=== PATIENT | male | born 1985 | race Caucasian/White ===

== ENCOUNTER 2016-11-14 23:19 | Emergency (ER) | payer OTHER ==
--- NOTE | 2016-11-14 23:55 | PDOC ---
History of Present Illness - General History Source: Patient Exam Limitations: No Limitations - History of Present Illness Initial Comments: 11/15/16 00:11 The patient is a 31 year old male, with a significant past medical history of anemia, who presents to the emergency department complaining of hiccups and chest pain since approximately 16:00 today. The patient reports experiencing intermittent hiccups earlier this afternoon. He reports some chest pain, which he associates to a cold. Patient reports his chest pain is pleuritic in nature. He denies any associated shortness of breath, diaphoresis, or palpitations. Patient endorses a cough productive of yellow sputum for the past three days, but denies any fever, chills, headache, or dizziness. He denies any nausea, vomiting, diarrhea, or constipation. Patient reports recent contact with partner who also has a cold. Patient denies any recent travel. Allergies: NKDA Past Surgical History: None reported Social History: Social hookah use. No ETOH or other drug use. <Torin Reeves - Last Filed: 11/15/16 00:11> <Masood Lyons - Last Filed: 11/15/16 02:14> - General Stated Complaint: HICCUPS Time Seen by Provider: 11/14/16 23:51 Past History <Torin Reeves - Last Filed: 11/15/16 00:11> - Past Medical History Anemia: Yes (thalessemia) - Immunization History Immunization Up to Date: Yes - Suicide/Smoking/Psychosocial Hx Smoking History: Never smoked Have you smoked in the past 12 months: No Number of Cigarettes Smoked Daily: 0 Hx Alcohol Use: No Drug/Substance Use Hx: No Substance Use Type: None <Masood Lyons - Last Filed: 11/15/16 02:14> - Past Medical History Allergies/Adverse Reactions: Allergies Allergy/AdvReac Type Severity Reaction Status Date / Time No Known Allergies Allergy Verified 11/15/16 00:15 Home Medications: Ambulatory Orders Meclizine HCl [Antivert -] 25 mg PO DAILY #7 tablet 12/09/15 Azithromycin [Zithromax -] 250 mg PO UTDICT #6 tab 11/15/16 Review of Systems - Review of Systems Able to Perform ROS?: Yes Comments:: 11/15/16 00:12 CONSTITUTIONAL: Yes hiccups. No fever, no chills, no fatigue EYES: No visual changes ENT: No ear pain, no sore throat CARDIOVASCULAR: Yes chest pain. No palpitations RESPIRATORY: Yes cough productive of yellow sputum. No SOB GI: No abdominal pain, no nausea, no vomiting, no constipation, no diarrhea GENITOURINARY: No dysuria, no frequency, no hematuria MUSCULOSKELETAL: No back pain, no joint pain, no myalgias SKIN: No rash NEURO: No headache <Torin Reeves - Last Filed: 11/15/16 00:11> *Physical Exam - Physical Exam Comments: 11/15/16 00:29 EXAMINATION CONSTITUTIONAL: Well-appearing; well-nourished; in no apparent distress HEAD: Normocephalic; atraumatic EYES: PERRL; EOM intact ENMT: External appears normal; normal oropharynx NECK: Supple; non-tender; no cervical lymphadenopathy CARD: Normal S1, S2; no murmurs, rubs, or gallops RESP: Normal chest excursion with respiration; breath sounds clear and equal bilaterally; no wheezes, rhonchi, or rales ABD: Soft, non-distended; non-tender; no palpable organomegaly, no palpable hernias EXT: Normal ROM in all four extremities; non-tender to palpation; distal pulses intact SKIN: Warm, dry, no rash NEURO: No focal neurological deficiencies. <Masood Lyons - Last Filed: 11/15/16 02:14> Medical Decision Making - Medical Decision Making 11/15/16 00:29 Well-appearing 31 patient presents with mild productive cough and intermittent. Patient is afebrile and hemodynamically stable. We'll obtain chest x-ray to rule out pneumonia. Likely discharge. 11/15/16 02:11 Patient with right middle lobe infiltrate. Will discharge with Z-Leopoldo with outpatient follow-up. <Masood Lyons - Last Filed: 11/15/16 02:14> *DC/Admit/Observation/Transfer - Attestations Scribe Attestion: 11/15/16 00:11 Documentation prepared by Torin Reeves, acting as medical record clerk for Masood Lyons MD. <Torin Reeves - Last Filed: 11/15/16 00:11> - Attestations Physician Attestion: 11/15/16 00:29 The documentation was prepared by the scribe under my direct supervision. I have reviewed the documentation which correctly represents the findings, medical decision-making and critical action taken by me. <Masood Lyons - Last Filed: 11/15/16 02:14> Diagnosis at time of Disposition: Hiccups Pneumonia Qualifiers: Pneumonia type: due to unspecified organism Laterality: right Lung location: middle lobe of lung Qualified Code(s): J18.1 - Lobar pneumonia, unspecified organism; J18.1 - Lobar pneumonia, unspecified organism; J18.1 - Lobar pneumonia , unspecified organism - Discharge Dispostion Disposition: HOME Condition at time of disposition: Stable - Referrals Referrals: [facility] [Provider Group] - Patient Instructions Printed Discharge Instructions: DI for Pneumonia -- Adult
[2016-11-15 00:17] VITALS: BP 124/65; PULSE 65; TEMP 97.5; BMI 24.3
== END 2016-11-15 02:24 | disposition home or self-care (01) ==
LOC: JER 23:19
DX: J18.1 Lobar pneumonia, unspecified organism (principal); R06.6 Hiccough
CPT/HCPCS: 71020-TC; 99281-25

== ENCOUNTER 2017-11-21 21:19 | Emergency (ER) | payer SELFPAY ==
[2017-11-21 21:28] VITALS: BP 134/79; BMI 32.4
[2017-11-21] MEDS ORDERED: ACETAMINOPHEN 500 MG TABLET (FP) PO ONE (21:28)
[2017-11-21] MEDS ORDERED: ACETAMINOPHEN 500 MG TABLET (FP) ONE (21:29)
--- NOTE | 2017-11-21 23:09 | PDOC ---
History of Present Illness - General History Source: Patient, Family Exam Limitations: No Limitations - History of Present Illness Initial Comments: 11/21/17 23:14 The patient is a 32 year old male, with no significant past medical history, who presents to the ED complaining of sore throat, subjective fever, dizziness, cough, nausea and vomiting for 2 days. He notes that his cough is productive of a yellow sputum. He denies any recent travel or sick contacts. He notes that he has been taking Advil and a few doses of Penicillin that he had in the house. The patient denies chest pain, shortness of breath, headache, chills, diarrhea or constipation. Allergies: None Past surgical history: None reported Social History: No alcohol, tobacco or drug use reported <Brodie Daniels - Last Filed: 11/21/17 23:51> <Minnie Mckeon - Last Filed: 11/22/17 04:49> - General Chief Complaint: Cold Symptoms Stated Complaint: FEVER/SORE THROAT Time Seen by Provider: 11/21/17 21:38 Past History <Brodie Daniels - Last Filed: 11/21/17 23:51> - Past Medical History Anemia: Yes (thalessemia) COPD: No - Immunization History Immunization Up to Date: Yes - Suicide/Smoking/Psychosocial Hx Smoking History: Never smoked Have you smoked in the past 12 months: No Number of Cigarettes Smoked Daily: 0 Hx Alcohol Use: No Drug/Substance Use Hx: No Substance Use Type: None <Minnie Mckeon - Last Filed: 11/22/17 04:49> - Past Medical History Allergies/Adverse Reactions: Allergies Allergy/AdvReac Type Severity Reaction Status Date / Time No Known Allergies Allergy Verified 11/15/16 00:15 Home Medications: Ambulatory Orders Ibuprofen [Ibu-200] 400 mg PO ONCE 11/21/17 Review of Systems - Review of Systems Able to Perform ROS?: Yes Comments:: 11/21/17 23:14 GENERAL/CONSTITUTIONAL: (+) Fever. No chills. No weakness. HEAD, EYES, EARS, NOSE AND THROAT: (+) Sore throat. No change in vision. No ear pain or discharge. GASTROINTESTINAL: (+) nausea, vomiting. No diarrhea or constipation. GENITOURINARY: No dysuria, frequency, or change in urination. CARDIOVASCULAR: No chest pain or shortness of breath. RESPIRATORY: (+) Cough. No wheezing, or hemoptysis. MUSCULOSKELETAL: No joint or muscle swelling or pain. No neck or back pain. SKIN: No rash NEUROLOGIC: (+) Dizziness. No headache, loss of consciousness, or change in strength/sensation. ENDOCRINE: No increased thirst. No abnormal weight change. HEMATOLOGIC/LYMPHATIC: No anemia, easy bleeding, or history of blood clots. ALLERGIC/IMMUNOLOGIC: No hives or skin allergy. <Brodie Daniels - Last Filed: 11/21/17 23:51> *Physical Exam - Vital Signs Last Vital Signs Temp Pulse Resp BP Pulse Ox 101.7 F H 128 H 16 134/79 97 11/21/17 21:25 11/21/17 21:25 11/21/17 21:25 11/21/17 21:25 11/21/17 21:25 - Physical Exam Comments: 11/21/17 23:14 Constitutional: Awake, alert, oriented. No acute distress. Head: Normocephalic. Atraumatic Eyes: PERRL. EOMI. Conjunctivae are not pale. ENT: (+) Erythema, mild edema and exudate around the left tonsil, with tenderness on left anterior cervical lymphnodes. Mucous membranes are moist and intact. Uvula midline. Neck: Supple. Full ROM. No lymphadenopathy. Cardiovascular: Regular rate. Regular rhythm. S1, S2 regular. Distal pulses are 2+ and symmetric. Pulmonary/Chest: No evidence of respiratory distress. Clear to auscultation bilaterally No wheezing, rales or rhonchi. Abdominal: Soft and non-distended. There is no tenderness. No rebound, guarding or rigidity. No organomegaly. No palpable masses. Good bowel sounds. Back: No CVA tenderness. Musculoskeletal: No edema. No cyanosis. No clubbing. Full range of motion in all extremities. Nocalf tenderness. Radial/pedal pulses are intact and 2+ bilaterally Skin: Skin is warm and dry. No petechiae. No purpura. Neurological: Alert and oriented to person, place, and time. Cranial nerves II -XII are grossly intact. Normal speech. Strength is grossly symmetric. No sensory deficits. Psychiatric: Good eye contact. Normal interaction, affect and behavior. <Brodie Daniels - Last Filed: 11/21/17 23:51> - Vital Signs Last Vital Signs Temp Pulse Resp BP Pulse Ox 101.7 F H 128 H 16 134/79 97 11/21/17 21:25 11/21/17 21:25 11/21/17 21:25 11/21/17 21:25 11/21/17 21:25 <Minnie Mckeon - Last Filed: 11/22/17 04:49> ED Treatment Course - ADDITIONAL ORDERS Additional order review: 11/21/17 21:28 Group A Strep Rapid Antigen - Final Throat NEGATIVE FOR THE ANTIGEN OF BETA HEMOLYTIC STREP GROUP A - Medications Given in the ED: ED Medications Discontinued Medications Generic Name Dose Route Start Last Admin Trade Name Freq PRN Reason Stop Dose Admin Acetaminophen 1,000 mg 11/21/17 21:28 11/21/17 21:28 Tylenol - PO 11/21/17 21:29 1,000 mg NOW ONE Administration <Brodie Daniels - Last Filed: 11/21/17 23:51> - ADDITIONAL ORDERS Additional order review: 11/21/17 21:28 Group A Strep Rapid Antigen - Final Throat NEGATIVE FOR THE ANTIGEN OF BETA HEMOLYTIC STREP GROUP A - Medications Given in the ED: ED Medications Discontinued Medications Generic Name Dose Route Start Last Admin Trade Name Freq PRN Reason Stop Dose Admin Acetaminophen 1,000 mg 11/21/17 21:28 11/21/17 21:28 Tylenol - PO 11/21/17 21:29 1,000 mg NOW ONE Administration <Minnie Mckeon - Last Filed: 11/22/17 04:49> Medical Decision Making - Medical Decision Making Documentation has been prepared under my direction and personally reviewed by me in its entirety. I attest that this documented accurately reflects all work, treatment, procedures and medical decision making performed by me. As noted above, this 32-year-old man presents with a few day history of fever body aches/nausea/vomiting/diarrhea with nonproductive cough and sore throat Exam notable for presentation fever of 101.1 degrees Fahrenheit and erythematous , exudative tonsillitis on the left side. Quick strep was negative and throat culture sent. Patient given 1 g acetaminophen by mouth Although the patient has exudates around the tonsil on the left side, other parts of his presentation are consistent with viral etiology of his illness ( body aches, gastrointestinal symptoms, nonproductive cough. Patient defervesced to 99.2F after acetaminophen. Therefore, patient will be discharged with instructions to continue hydration and rest. Antibiotic prescription will be called in to his pharmacy if throat culture is positive. <Minnie Mckeon - Last Filed: 11/22/17 04:49> *DC/Admit/Observation/Transfer - Attestations Scribe Attestion: 11/21/17 23:14 Documentation prepared by Brodie Daniels, acting as medical payment poster for Minnie Mckeon MD <Brodie Daniels - Last Filed: 11/21/17 23:51> <Minnie Mckeon - Last Filed: 11/22/17 04:49> Diagnosis at time of Disposition: Pharyngitis Qualifiers: Pharyngitis/tonsillitis etiology: unspecified etiology Qualified Code(s): J02.9 - Acute pharyngitis, unspecified - Discharge Dispostion Disposition: HOME Condition at time of disposition: Stable - Patient Instructions Printed Discharge Instructions: DI for Pharyngitis/Tonsillopharyngitis -- Adult Additional Instructions: Rest; drink plenty of fluids Motrin/Tylenol/Aleve as needed for pain and fever We will call you if throat culture is positive and you need antibiotics Return to ER if you have severe pain or high fever Follow-up with your doctor within the next 5 Print Language: FAROESE
[2017-11-21 23:42] VITALS: PULSE 88; TEMP 99.2
== END 2017-11-21 23:55 | disposition home or self-care (01) ==
LOC: FER 21:19
DX: J02.9 Acute pharyngitis, unspecified (principal)
CPT/HCPCS: 87070; 87077; 87430; 99282-25

== ENCOUNTER 2019-02-28 11:58 | Emergency (ER) | payer OTHER ==
[2019-02-28 12:06] VITALS: BP 134/79; PULSE 91; TEMP 97.9; BMI 33.3
[2019-02-28] MEDS ORDERED: KETOROLAC TROMETHAMINE 60 MG/2 ML VIAL IM ONE (12:29)
[2019-02-28] MEDS ORDERED: CYCLOBENZAPRINE HCL 10 MG TABLET (FP) PO ONE (12:29)
[2019-02-28] MEDS ORDERED: MAG HYDROX/AL HYDROX/SIMETH -MYLANTA- ORAL SUSPENSION PO ONE (12:29)
--- NOTE | 2019-02-28 12:29 | PDOC ---
History of Present Illness - General Chief Complaint: Back Pain Stated Complaint: BACK PAIN Time Seen by Provider: 02/28/19 12:01 - History of Present Illness Initial Comments: 02/28/19 12:33 Complaint: Low back pain HPI: Awoke yesterday morning with low back pain, across bilateral sacral area, without radiation to the abdomen or legs. Denies injury, heavy work or lifting , but sits in a car all day. Similar mild back pain in the past, but not as severe. Review of systems: Admits epigastric burning and reflux symptoms for several months, aggravated on an empty stomach, improved with eating. Occasionally brings up small amount of ascitic fluid, yellowish in color, most often when he is brushing his teeth in the morning. Denies chest pain, shortness of breath, berto vomiting or diarrhea, hematemesis melena or bloody stool, numbness, tingling, pain, or weakness in the lower extremities, visual or focal neurologic symptoms, unsteadiness of gait Past medical history: Occasional low back pain and reflux symptoms as described above. Otherwise negative. Takes no medication Family history: No history of coronary artery disease or other cardiac disease in his parents or siblings. No history of GI disease, metabolic disease including diabetes, or cancer Social history: Patient smokes hookah. Denies cigarettes. Occasional social alcohol. No nonprescription drugs. Has gained considerable weight recently Physical exam: Alert and oriented, moderately obese male in no acute distress, cooperative Afebrile, vital signs normal PERRLA, fundi benign, ENT clear No pallor or icterus. Neck supple without bruit mass or nodes Lungs clear with full breath sounds bilaterally. CV S1-S2 normal without murmur rub or gallop pulses full and symmetric no JVD or edema no bruits regular rate Abdomen: Considerably obese, but nondistended, normal bowel sounds. Soft without mass tenderness organomegaly. Specifically, no significant epigastric tenderness to palpation. Sharp sign is negative. No CVAT Extremities no CCE Skin clear, no rash, adequate turgor and wet mucous membranes LS spine: There is loss of the normal lumbar lordosis. There is mild to moderate paravertebral muscle spasm. Straight leg raising is negative. No distal sensory or motor deficits. Gait is stable and unimpaired. Neurological C2 to 12 intact. Strength full and symmetric. No focal sensorimotor deficits. Impression: Low back strain, probably aggravated by prolonged sitting in a car. No other injuries. No radicular signs or symptoms suggestive of herniated disc. Dyspepsia, GERD, possible early gastritis. Patient may smoke and drink more than he admits Plan: Symptomatic treatment of low back pain with medication and avoidance of the sitting position until pain resolves. Pepcid and GI referral for further evaluation of stomach symptoms. Past History - Past Medical History Allergies/Adverse Reactions: Allergies Allergy/AdvReac Type Severity Reaction Status Date / Time No Known Allergies Allergy Verified 02/28/19 12:02 Home Medications: Ambulatory Orders Cyclobenzaprine HCl [Flexeril -] 10 mg PO TID #10 tablet 02/28/19 Diclofenac Sodium 50 mg PO BID #10 tablet. 02/28/19 Famotidine [Pepcid] 40 mg PO DAILY #14 tablet 02/28/19 Anemia: Yes (thalessemia as a child) COPD: No - Immunization History Immunization Up to Date: Yes - Psycho Social/Smoking Cessation Hx Smoking History: Never smoked Have you smoked in the past 12 months: No Number of Cigarettes Smoked Daily: 0 Information on smoking cessation initiated: No 'Breaking Loose' booklet given: 11/21/17 Hx Alcohol Use: ("social") Drug/Substance Use Hx: No Substance Use Type: None Trauma Specific PMHX - Complaint Specific PMHX Back Injury: Yes Neck Injury: No *Physical Exam - Vital Signs Last Vital Signs Temp Pulse Resp BP Pulse Ox 97.9 F 91 H 18 134/79 98 02/28/19 11:58 02/28/19 11:58 02/28/19 11:58 02/28/19 11:58 02/28/19 11:58 Medical Decision Making - Medical Decision Making 02/28/19 13:24 Patient's back pain is much improved. He is much more mobile, with good range of motion of the LS-spine. He is experiencing no abdominal discomfort. Discharged with referrals to follow-up as directed Discharge - Discharge Information Problems reviewed: Yes Clinical Impression/Diagnosis: GERD (gastroesophageal reflux disease) Low back strain Qualifiers: Encounter type: initial encounter Qualified Code(s): S39.012A - Strain of muscle, fascia and tendon of lower back, initial encounter Condition: Improved Disposition: HOME - Admission No - Additional Discharge Information Prescriptions: Cyclobenzaprine HCl [Flexeril -] 10 mg PO TID #10 tablet Diclofenac Sodium 50 mg PO BID #10 tablet. Famotidine [Pepcid] 40 mg PO DAILY #14 tablet - Follow up/Referral Referrals: Bc Don MD [Staff Physician] - 1 week Tim Murillo MD [Staff Physician] - 1 week - Patient Discharge Instructions Patient Printed Discharge Instructions: DI for Low Back Pain, DI for Gastroesophageal Reflux Disease (GERD) Print Language: ITALIAN - Post Discharge Activity Work/Back to School Note: Back to Work
[2019-02-28] MEDS ORDERED: KETOROLAC TROMETHAMINE 60 MG/2 ML VIAL ONE (12:31)
[2019-02-28] MEDS ORDERED: CYCLOBENZAPRINE HCL 10 MG TABLET (FP) ONE (12:32)
[2019-02-28] MEDS ORDERED: MAG HYDROX/AL HYDROX/SIMETH 30 ML UNIT-DOSE CUP ONE (12:32)
== END 2019-02-28 13:25 | disposition home or self-care (01) ==
LOC: FER 11:58
PROC: 3E0233Z Introduction of Anti-inflammatory into Muscle, Percutaneous Approach (ICD-10-PCS; principal; 2019-02-28)
DX: S39.012A Strain of muscle, fascia and tendon of lower back, initial encounter (principal); K21.9 Gastro-esophageal reflux disease without esophagitis; X58.XXXA Exposure to other specified factors, initial encounter; Y93.89 Activity, other specified; Y92.89 Other specified places as the place of occurrence of the external cause
CPT/HCPCS: 99283-25

== ENCOUNTER 2019-12-25 19:20 | Emergency (ER) | payer OTHER ==
[2019-12-25 19:57] VITALS: BP 144/87; PULSE 66; TEMP 98; BMI 34.0
== END 2019-12-25 21:48 | disposition home or self-care (01) ==
LOC: JER 19:20
DX: U07.1 COVID-19 (principal)
CPT/HCPCS: 99283-25; C9803; U0003

== ENCOUNTER 2021-07-07 00:08 | Emergency (ER) | payer OTHER ==
[2021-07-07 00:15] VITALS: BP 137/92; TEMP 98.8; BMI 35.7
[2021-07-07] MEDS ORDERED: ALBUTEROL SO4 2.5/IPRATROPIUM 0.5 INH SOL 3 ML VIAL.NEB. NEB ONE ×2 (00:33→00:38)
[2021-07-07] MEDS ORDERED: ACETAMINOPHEN 1000 MG/100 ML BAG IVPB ONE (00:35)
[2021-07-07] MEDS ORDERED: SODIUM CHLORIDE 1,000 ML IV STA (00:35)
[2021-07-07] MEDS ORDERED: ACETAMINOPHEN INJECTION 100 ML IVPB ONE (00:37)
[2021-07-07 01:37] LABS: BASO % 0.4 % (0-2.0); HEMATOCRIT 42.6 % (35.4-49); HEMOGLOBIN 14.4 GM/dL (11.7-16.9); LYMPH % 16.1 % (8-40); MCHC 33.8 g/dl (32.0-35.9); MEAN CELL VOLUME 85.9 fl (80-96); MEAN PLT VOLUME 9.2 fl (7.5-11.1); NEUT % 74.5 % (42.8-82.8); PLATELET COUNT 310 10^3/uL (134-434); RBC 4.96 M/mm3 (4.00-5.60); RDW 13.6 % (11.9-15.9); WHITE BLOOD COUNT 7.8 K/mm3 (4.0-10.0)
[2021-07-07 01:44] VITALS: PULSE 104
[2021-07-07 02:00] LABS: CALCIUM 9.6 mg/dL (8.5-10.1)
[2021-07-07 02:01] LABS: ALBUMIN 4.2 g/dl (3.4-5.0); BLOOD UREA NITROGEN 15.5 mg/dL (7-18)
[2021-07-07 02:05] LABS: BILIRUBIN,TOTAL 0.5 mg/dL (0.2-1); TOT PROT 7.9 g/dl (6.4-8.2)
[2021-07-07] MEDS ORDERED: OSELTAMIVIR PHOSPHATE 75 MG CAPSULE PO ONE (02:41)
[2021-07-07] MEDS ORDERED: OSELTAMIVIR PHOSPHATE 75 MG CAPSULE ONE (02:43)
== END 2021-07-07 02:46 | disposition home or self-care (01) ==
LOC: FER 00:08
PROC: 3E033GC Introduction of Other Therapeutic Substance into Peripheral Vein, Percutaneous Approach (ICD-10-PCS; principal; 2021-07-07)
PROC: 3E0F7GC Introduction of Other Therapeutic Substance into Respiratory Tract, Via Natural or Artificial Opening (ICD-10-PCS; 2021-07-07)
DX: J09.X2 Influenza due to identified novel influenza A virus with other respiratory manifestations (principal)
CPT/HCPCS: 0241U-QW; 36415; 80053; 85025; 99284-25